=== PATIENT | male | born 1990 | race Caucasian/White ===

== ENCOUNTER 2018-11-18 19:56 | Emergency (ER) | payer BC ==
[~2018-11-18] VITALS: Ht 177.8 cm; Wt 63.5 kg
[2018-11-18 21:11] LABS: BASO % 1 % (0-3); EOS # 0.2 x10^3/uL (0.0-0.7); EOS % 3 % (0-3); HEMATOCRIT 46.2 % (39.0-53.0); HEMOGLOBIN 15.7 g/dL (13.0-17.5); LYMPH # 1.2 x10^3/uL (1.0-4.8); LYMPH % 20 % (24-48); MEAN CORPUSCULAR HEMOGLOBIN 34 pg (25-35); MEAN CORPUSCULAR HGB CONC 34 g/dL (31-37); MEAN CORPUSCULAR VOLUME 100 fL (79-100); MONO # 0.3 x10^3/uL (0.0-1.1); MONO % 6 % (0-9); NEUT # 4.2 x10^3uL (1.8-7.7); NEUT % 71 % (31-73); PLATELET COUNT 213 x10^3/uL (140-400); RED BLOOD COUNT 4.63 x10^6/uL (4.30-5.70); RED CELL DISTRIBUTION WIDTH 13.2 % (11.5-14.5)
[2018-11-18 21:13] LABS: BILIRUBIN,URINE NEGATIVE (NEG); CLARITY,URINE CLEAR; COLOR,URINE YELLOW; NITRITE,URINE NEGATIVE (NEG); PROTEIN,URINE NEGATIVE (NEG-TRACE)
[2018-11-18] MEDS ORDERED: IV NORMAL SALINE 1000ML BAG 1,000 ML IV ONE (21:15)
[2018-11-18 21:21] LABS: CALCIUM 9.1 mg/dL (8.5-10.1); CREATININE 0.9 mg/dL (0.7-1.3); GFR 99.1; POTASSIUM 3.6 mmol/L (3.5-5.1)
[2018-11-18 21:22] LABS: BACTERIA,URINE 0 /HPF (0-FEW); RBC,URINE 0 /HPF (0-2); SQUAMOUS EPITHELIAL CELL,UR FEW /LPF; WBC,URINE 0 /HPF (0-4)
[2018-11-18 21:27] LABS: ALBUMIN 4.6 g/dL (3.4-5.0); ALBUMIN/GLOBULIN RATIO 1.2 (1.0-1.7); MAGNESIUM 2.7 mg/dL (1.8-2.4); TOTAL BILIRUBIN 0.3 mg/dL (0.2-1.0); TOTAL PROTEIN 8.6 g/dL (6.4-8.2)
--- NOTE | 2018-11-18 21:35 | PHYS DOC ---
Past Medical History Past Medical History: Hypertension, Seizure Past Surgical History: No Surgical History Smoking: Cigarettes, 1 Pack Per Day Alcohol Use: Heavy (6 beers a day) Drug Use: Marijuana Adult General Chief Complaint Chief Complaint: DEHYDRATION HPI HPI Patient is a 28 year old male who presents complaining of weakness in his bilateral lower extremities and diaphoresis. Patient states that he was at work around six o'clock tonight when he began feeling weak and sweaty. Patient further describes the weakness as feeling as if his legs were going to give out underneath him. Patient reports going to urgent care prior to arrival where he was told to come to the ED for evaluation of likely dehydration. Patient reports drinking less water today than he normally does. Patient states that he drank a bottle of water on the way to the ED and is feeling better upon arrival. Patient denies syncope, lightheadedness, dizziness, headache, recent illness, and vision changes. Review of Systems Review of Systems Constitutional: Denies fever or chills. Eyes: Denies change in visual acuity or eye pain. HENT: Denies nasal congestion or sore throat. Respiratory: Denies cough or shortness of breath. Cardiovascular: Denies chest pain or palpations. GI: Denies abdominal pain, nausea, vomiting, or diarrhea. : Denies dysuria or hematuria. Musculoskeletal: Reports mild chronic back pain. Denies joint pain. Integument: Denies rash or skin lesions. Neurologic: Denies headache or sensory changes. Complete systems were reviewed and found to be within normal limits, except as documented in this note. Current Medications Current Medications Current Medications Medications (Trade) Dose Ordered Sig/Claire Start Time Stop Time Status Last Admin Dose Admin Sodium Chloride 1,000 ml @ 1,000 mls/hr 1X ONCE 11/18/18 21:15 11/18/18 22:14 DC 11/18/18 21:10 1,000 MLS/HR Allergies Allergies Allergies Coded Allergies Type Severity Reaction Last Updated Verified No Known Drug Allergies 11/18/18 No Physical Exam Physical Exam Constitutional: Well developed, well nourished, no acute distress, non-toxic appearance. HENT: Normocephalic, atraumatic, bilateral external ears normal. Mucous membranes dry. Eyes: PERRL, EOMI, conjunctiva normal. Neck: Normal range of motion, no tenderness, supple. Cardiovascular: Heart rate regular rhythm, no murmur. Capillary refill 2 seconds. Lungs & Thorax: Bilateral breath sounds clear to auscultation. No wheezing. Abdomen: Soft, no tenderness on palpation. Skin: Warm, dry, no rash. Back: No tenderness, no CVA tenderness. Extremities: No tenderness, ROM intact, no edema. Neurologic: Alert and oriented X 3, normal motor function, normal sensory function, no focal deficits noted. Psychologic: Affect normal, judgement normal, mood normal. Current Patient Data Vital Signs Vital Signs Date Time Temp Pulse Resp B/P (MAP) Pulse Ox O2 Delivery O2 Flow Rate FiO2 11/18/18 23:37 81 145/88 (107) 97 Room Air 11/18/18 20:00 97.9 20 97.9 Lab Values Laboratory Tests Test 11/18/18 20:09 11/18/18 20:38 White Blood Count 6.0 x10^3/uL (4.0-11.0) Red Blood Count 4.63 x10^6/uL (4.30-5.70) Hemoglobin 15.7 g/dL (13.0-17.5) Hematocrit 46.2 % (39.0-53.0) Mean Corpuscular Volume 100 fL (79-100) Mean Corpuscular Hemoglobin 34 pg (25-35) Mean Corpuscular Hemoglobin Concent 34 g/dL (31-37) Red Cell Distribution Width 13.2 % (11.5-14.5) Platelet Count 213 x10^3/uL (140-400) Neutrophils (%) (Auto) 71 % (31-73) Lymphocytes (%) (Auto) 20 % (24-48) L Monocytes (%) (Auto) 6 % (0-9) Eosinophils (%) (Auto) 3 % (0-3) Basophils (%) (Auto) 1 % (0-3) Neutrophils # (Auto) 4.2 x10^3uL (1.8-7.7) Lymphocytes # (Auto) 1.2 x10^3/uL (1.0-4.8) Monocytes # (Auto) 0.3 x10^3/uL (0.0-1.1) Eosinophils # (Auto) 0.2 x10^3/uL (0.0-0.7) Basophils # (Auto) 0.0 x10^3/uL (0.0-0.2) Sodium Level 136 mmol/L (136-145) Potassium Level 3.6 mmol/L (3.5-5.1) Chloride Level 99 mmol/L (98-107) Carbon Dioxide Level 26 mmol/L (21-32) Anion Gap 11 (6-14) Blood Urea Nitrogen 10 mg/dL (8-26) Creatinine 0.9 mg/dL (0.7-1.3) Estimated GFR (Cockcroft-Gault) 99.1 BUN/Creatinine Ratio 11 (6-20) Glucose Level 128 mg/dL (70-99) H Calcium Level 9.1 mg/dL (8.5-10.1) Magnesium Level 2.7 mg/dL (1.8-2.4) H Total Bilirubin 0.3 mg/dL (0.2-1.0) Aspartate Amino Transferase (AST) 80 U/L (15-37) H Alanine Aminotransferase (ALT) 109 U/L (16-63) H Alkaline Phosphatase 75 U/L (46-116) Creatine Kinase 263 U/L (39-308) Creatine Kinase MB (Mass) 1.5 ng/mL (0.0-3.6) Creatine Kinase MB Relative Index 0.6 % (0-4) Troponin I Quantitative < 0.017 ng/mL (0.000-0.055) Total Protein 8.6 g/dL (6.4-8.2) H Albumin 4.6 g/dL (3.4-5.0) Albumin/Globulin Ratio 1.2 (1.0-1.7) Urine Collection Type Unknown Urine Color Yellow Urine Clarity Clear Urine pH 5.0 Urine Specific [place] 1.020 Urine Protein Negative mg/dL (NEG-TRACE) Urine Glucose (UA) 250 mg/dL (NEG) Urine Ketones (Stick) Negative mg/dL (NEG) Urine Blood Negative (NEG) Urine Nitrite Negative (NEG) Urine Bilirubin Negative (NEG) Urine Urobilinogen Dipstick 1.0 mg/dL (0.2 mg/dL) Urine Leukocyte Esterase Negative (NEG) Urine RBC 0 /HPF (0-2) Urine WBC 0 /HPF (0-4) Urine Squamous Epithelial Cells Few /LPF Urine Bacteria 0 /HPF (0-FEW) Urine Mucus Mod /LPF Laboratory Tests 11/18/18 20:09 Laboratory Tests 11/18/18 20:09 EKG EKG [] Radiology/Procedures Radiology/Procedures @2113 NSR at 74bpm, NO ST elevation, J point elevation V3-V5, incomplete RBBB Course & Med Decision Making Course & Med Decision Making Pertinent Labs reviewed. (See chart for details) Patient presents to the ED for evaluation of bilateral lower extremity weakness and diaphoresis which is improved upon arrival. 1 L normal saline IV administered. Patient reports significant improvement of weakness throughout ED stay. Patient stable for discharge with outpatient follow-up with PCP. Discussed findings and plan with patient and family, who acknowledge understanding and agreement. Dragon Disclaimer Dragon Disclaimer This electronic medical record was generated, in whole or in part, using a voice recognition dictation system. Departure Departure Impression: Primary Impression: Dehydration Disposition: 01 HOME, SELF-CARE Condition: STABLE Referrals: NO PCP (PCP) Patient Instructions: Dehydration, Adult, [id number] Additional Instructions: Increase you fluid consumption. JUAN JOSE MALIK DO Nov 18, 2018 21:35
[2018-11-18 23:37] VITALS: BP 145/88
--- NOTE | 2018-11-19 05:57 | EKG ---
[facility] [address] [place] [id number] Test Date: 2018-11-18 Test Time: 21:13:11 Pat Name: SRINIVAS FRANK Department: Room: Gender: M Customer Service Representative Teacher: : 1990 Requested By: JUAN JOSE MALIK Order Number: [id number] Reading MD: Manny Littlejohn MD Measurements Intervals [place] Rate: 74 P: 127 MD: 144 QRS: 82 QRSD: 116 T: 129 QT: 372 QTc: 418 Interpretive Statements SR RBBB NON-SPECIFIC ST/T CHANGES Electronically Signed On 11-19-2018 8:44:25 CDT by Manny Littlejohn MD
== END 2018-11-18 23:47 | disposition home or self-care (01) ==
LOC: ER 19:56
DX: E86.0 Dehydration (principal); G89.29 Other chronic pain; M54.9 Dorsalgia, unspecified; I10 Essential (primary) hypertension; F17.210 Nicotine dependence, cigarettes, uncomplicated; F10.20 Alcohol dependence, uncomplicated; Y90.9 Presence of alcohol in blood, level not specified
CPT/HCPCS: 36415; 80053; 81001; 82553; 83735; 84484; 85025; 93005; 96360; 99284; J7030